=== PATIENT | female | born 1985 | race Caucasian/White ===

== ENCOUNTER 2025-08-20 13:59 | Outpatient (CLI) | payer BC | END 2025-08-20 14:00 | disposition home or self-care (01) | LOC: CSHULT 13:59 | PROVIDERS: ATTEND Student in an Organized Health Care Education/Training Program | DX: R92.8 Other abnormal and inconclusive findings on diagnostic imaging of breast (principal); R92.333 Mammographic heterogeneous density, bilateral breasts | CPT/HCPCS: G0279 ==